=== PATIENT | male | born 1990 | race African-American/Black ===

== ENCOUNTER 2017-03-21 22:30 | Emergency (ER) | payer SELFPAY ==
[~2017-03-21] VITALS: Ht 177.8 cm; Wt 79.5 kg
[~2017-03-21 22:30] MED LIST: OTC COUGH MEDS
[2017-03-21 23:05] VITALS: BP 148/88
== END 2017-03-22 01:00 | disposition left against medical advice (07) ==
LOC: EMS 22:32
DX: R10.9 Unspecified abdominal pain (principal); F17.210 Nicotine dependence, cigarettes, uncomplicated; F12.90 Cannabis use, unspecified, uncomplicated; F14.90 Cocaine use, unspecified, uncomplicated; F19.90 Other psychoactive substance use, unspecified, uncomplicated; Z53.21 Procedure and treatment not carried out due to patient leaving prior to being seen by health care provider